=== PATIENT | male | born 1990 | race Caucasian/White ===

== ENCOUNTER 2024-08-02 10:58 | Day surgery (SDC) | payer OTHER ==
[~2024-08-02] VITALS: Ht 172.7 cm; Wt 72.6 kg
[2024-08-02] MEDS ORDERED: KETOROLAC 30 MG/ML VIAL ONE (11:31)
[2024-08-02] MEDS: KETOROLAC 30 MG/ML VIAL IVP ONE (11:51)
[2024-08-02] MEDS: LIDOCAINE 2% 100 MG/5 ML UJET TP ONE (11:52)
== END 2024-08-02 12:30 | disposition home or self-care (01) ==
LOC: MDS 10:58 → MMU 11:01 → MDS 12:30
PROVIDERS: ATTEND Internal Medicine Gastroenterology
DX: K62.5 Hemorrhage of anus and rectum (principal); K64.4 Residual hemorrhoidal skin tags; K21.9 Gastro-esophageal reflux disease without esophagitis; E78.00 Pure hypercholesterolemia, unspecified; Z80.0 Family history of malignant neoplasm of digestive organs; Z98.890 Other specified postprocedural states
CPT/HCPCS: 45350; J1885